=== PATIENT | female | born 1995 | race Caucasian/White ===

== ENCOUNTER 2016-09-21 09:25 | Emergency (ER) | payer OTHER ==
[2016-09-21] MEDS ORDERED: Ibuprofen TAB* 600 MG PO ONE (11:30)
--- NOTE | 2016-09-21 11:37 | ED ---
Head Injury - HPI Summary HPI Summary: 20 female presents with complaints of concussive symptoms. States she went down to pick something up and hit hear head on the corner of her car door yesterday. She felt fine yesterday however, upon waking up this morning she had an episode of feeling very nauseous light headed and has been experiencing a headache. She admits to a headache right now but denies nausea. She feels "out of it" and is experiencing photosensitivity. Denies vision changes, vision loss, bloody nose, tinnitus, vomiting, loss of memory/concentration and LOC. she remembers entire incident. Denies any other complaints/injuries and no PMHx. Admits to bruising and hematoma of right forehead. Describes headache to be diffuse but more in the frontal lobe that is throbbing, dull and constant. Has not taken any medication before arrival. - History Of Current Complaint Chief Complaint: EDHeadInjury Stated Complaint: HIT HEAD YESTERDAY/NAUSEA Hx Obtained From: Patient Hx Last Menstrual Period: aqbout 4 weeks ago on BCP Mechanism Of Injury: Direct Blow - on glass of car door Onset/Duration: Started Days Ago, Traumatic, Still Present, Worse Since Onset of Pain: Hours, Post Accident Severity Currently: None Severity Initially: Mild Pain Intensity: 3 Pain Scale Used: 0-10 Numeric Location of Head Injury: Diffuse, Frontal Character: Dull, Throbbing, Pressure, Aching Alleviating Factor(s): Rest Associated Signs And Symptoms: Nausea, Swelling, Bruising, Headache - Allergies/Home Medications Allergies/Adverse Reactions: Allergies Allergy/AdvReac Type Severity Reaction Status Date / Time No Known Allergies Allergy Verified 09/23/16 13:06 PMH/Surg Hx/FS Hx/Imm Hx Endocrine/Hematology History: Denies: Hx Anticoagulant Therapy, Hx Diabetes, Hx Thyroid Disease Cardiovascular History: Denies: Hx Hypertension Respiratory History: Denies: Hx Asthma, Hx Chronic Obstructive Pulmonary Disease (COPD) GI History: Denies: Hx Ulcer - Surgical History Surgery Procedure, Year, and Place: none - Immunization History Immunizations Up to Date: Yes Infectious Disease History: No Infectious Disease History: Denies: Hx Clostridium Difficile, Hx Hepatitis, Hx Human Immunodeficiency Virus (HIV), Hx of Known/Suspected MRSA, Hx Shingles, Hx Tuberculosis, Hx Known/ Suspected VRE, Hx Known/Suspected VRSA, History Other Infectious Disease, Traveled Outside the [place] in Last 30 Days - Family History Known Family History: Positive: Unknown - Social History Alcohol Use: Rare Substance Use Type: Reports: None Smoking Status (MU): Never Smoked Tobacco Review of Systems Constitutional: Negative Positive: Photophobia. Negative: Blurred Vision, Diplopia ENT: Negative Cardiovascular: Negative Respiratory: Negative Positive: Nausea Musculoskeletal: Negative Skin: Negative Positive: Headache. Negative: Weakness, Paresthesia, Numbness, Syncope, Slurred Speech Psychological: Normal All Other Systems Reviewed And Are Negative: Yes Physical Exam Triage Information Reviewed: Yes Vital Signs On Initial Exam: Initial Vitals Temp Pulse Resp BP Pulse Ox 97.9 F 63 17 104/63 100 09/21/16 09:42 09/21/16 09:42 09/21/16 09:42 09/21/16 09:42 09/21/16 09:42 Vital Signs Reviewed: Yes Appearance: Positive: Well-Appearing - laying on stretcher with towel covering eyes upon entry, during exam sitting up on stretcher smiling, A&Ox3 in NAD, No Pain Distress, Well-Nourished Skin: Positive: Warm, Skin Color Reflects Adequate Perfusion, Dry, Other - hematoma noted on right forehead, about size of a nickel, mild ecchymosis, no laceration. skin intact. minimal tenderness on palpation. no crepitus, step off or tender facial bones/nose. Head/Face: Positive: Normal Head/Face Inspection - besides hematoma noted above. Negative: Cephalohematoma Eyes: Positive: Normal, EOMI, AUGUST, Conjunctiva Clear ENT: Positive: Normal ENT inspection, Hearing grossly normal, Pharynx normal, TMs normal Dental: Negative: Percussion Tenderness @, Cervical Lymphadenopathy Neck: Positive: Supple, Nontender Respiratory/Lung Sounds: Positive: Clear to Auscultation, Breath Sounds Present Cardiovascular: Positive: Normal, RRR, Pulses are Symmetrical in both Upper and Lower Extremities Abdomen Description: Positive: Nontender, No Organomegaly, Soft Bowel Sounds: Positive: Present Musculoskeletal: Positive: Normal, Strength/ROM Intact Neurological: Positive: Normal - concentration and memory intactm normal neuro exam, without deficits., Sensory/Motor Intact, Alert, Oriented to Person Place, Time, CN Intact II-III, Reflexes Intact, NV Bundle Intact Distally, Normal Gait , Heel to Toe - normal, Finger to Nose - normal, Facial Symmetry, Speech Normal. Negative: [place] Psychiatric: Positive: Normal, Affect/Mood Appropriate AVPU Assessment: Alert - [place] Coma Scale Best Eye Response: 4 - Spontaneous Best Motor Response: 6 - Obeys Commands Best Verbal Response: 5 - Oriented Coma Scale Total: 15 Diagnostics - Vital Signs Vital Signs Temp Pulse Resp BP Pulse Ox 09/21/16 10:25 98.6 F 66 16 102/61 100 09/21/16 09:43 97.9 F 67 17 104/63 100 09/21/16 09:42 97.9 F 63 17 104/63 100 - Laboratory Lab Statement: Any lab studies that have been ordered have been reviewed, and results considered in the medical decision making process. Head Injury Course/Dx Course Of Treatment: ibuprofen given for headache. patient not nauseous at this time. due to normal PE findings and HPI/GUERRERO and according to CT Daviess score CT Brain did not seem appropriate at this time. Hemmorhage extremely unlikely. Patient educated on concussive symptoms and worsening signs and symptoms to watch out for. follow up, fluids, rest, and ibuprofen for headahce, zofran for nausea. second eval before returning to physical activity. - Diagnoses Differential Diagnosis/HQI/PQRI: Concussion With LOC, Concussion Without LOC, Contusion, Hematoma, Other Provider Diagnoses: Concussion without loss of consciousness Discharge - Discharge Plan Condition: Stable Disposition: HOME Patient Education Materials: Concussion (ED), Head Injury (ED) Referrals: [facility] [Primary Care Provider] - Additional Instructions: Take OTC Ibuprofen/Aleve as needed for pain and soreness. Take prescribed Zofran as needed for nausea. Drink plenty of fluids and get plenty of rest. If your symptoms worsen such as increasing pain, worst headache of your life, memory loss, vision changes, ringing in ears and vomiting please return to ED. Follow up with PCP for secondary evaluation and to ensure improvement of symptoms. Until then- refrain from running, jumping and strenuous physical activity to allow your brain to rest. Also refrain from high stimulating, high concentration activities such as watching television and using phone/computer for long periods of time. Take breaks frequently if you feel you are having trouble concentration
[2016-09-21 11:45] VITALS: BP 98/67
== END 2016-09-21 11:43 | disposition home or self-care (01) ==
LOC: ED 09:25
DX: S06.0X0A Concussion without loss of consciousness, initial encounter (principal); R11.0 Nausea; R60.9 Edema, unspecified; H53.149 Visual discomfort, unspecified; R51 Headache; W22.8XXA Striking against or struck by other objects, initial encounter; Y93.9 Activity, unspecified; Y92.9 Unspecified place or not applicable
CPT/HCPCS: 99282

== ENCOUNTER 2016-09-23 12:00 | Emergency (ER) | payer OTHER ==
[2016-09-23] MEDS ORDERED: Amoxicillin CAP* 250 MG PO ONE (13:42)
[2016-09-23 14:05] VITALS: BP 109/68
--- NOTE | 2016-09-23 16:24 | ED ---
Throat Pain/Nasal Congestion - HPI Summary HPI Summary: 20 year old female with several days of throat pain, fever with tmax to 102, body aches, fatigue. no N/v, + painful swallowing, no drooling, difficulty breathing, no sick contacts. + drinking, no appetite. - History of Current Complaint Chief Complaint: EDThroatPain Time Seen by Provider: 09/23/16 12:28 Hx Obtained From: Patient Onset/Duration: Sudden Onset Severity: Mild - Allergies/Home Medications Allergies/Adverse Reactions: Allergies Allergy/AdvReac Type Severity Reaction Status Date / Time No Known Allergies Allergy Verified 09/23/16 13:06 PMH/Surg Hx/FS Hx/Imm Hx Previously Healthy: Yes Endocrine/Hematology History: Denies: Hx Anticoagulant Therapy, Hx Diabetes, Hx Thyroid Disease Cardiovascular History: Denies: Hx Hypertension Respiratory History: Denies: Hx Asthma, Hx Chronic Obstructive Pulmonary Disease (COPD) GI History: Denies: Hx Ulcer Infectious Disease History: Denies: Hx Clostridium Difficile, Hx Hepatitis, Hx Human Immunodeficiency Virus (HIV), Hx of Known/Suspected MRSA, Hx Shingles, Hx Tuberculosis, Hx Known/ Suspected VRE, Hx Known/Suspected VRSA, History Other Infectious Disease, Traveled Outside the [place] in Last 30 Days - Social History Alcohol Use: Rare Substance Use Type: Reports: None Smoking Status (MU): Never Smoked Tobacco Review of Systems Positive: Fever, Chills, Fatigue Positive: Sore Throat, Ear Ache Cardiovascular: Negative Respiratory: Negative Gastrointestinal: Negative Genitourinary: Negative Musculoskeletal: Negative Skin: Negative Neurological: Negative Psychological: Normal All Other Systems Reviewed And Are Negative: Yes Physical Exam Triage Information Reviewed: Yes Vital Signs On Initial Exam: Initial Vitals Temp Pulse Resp BP Pulse Ox 100.5 F 94 20 105/62 100 09/23/16 12:09 09/23/16 12:09 09/23/16 12:09 09/23/16 12:09 09/23/16 12:09 Vital Signs Reviewed: Yes Appearance: Positive: No Pain Distress, Well-Nourished, Ill-Appearing - mild Skin: Positive: Warm, Skin Color Reflects Adequate Perfusion Head/Face: Positive: Normal Head/Face Inspection Eyes: Positive: EOMI, Conjunctiva Clear ENT: Positive: Hearing grossly normal, Pharyngeal erythema, TMs normal, Other - tonisilitis with white exudates, mildly enlarged. Dental: Positive: Cervical Lymphadenopathy Neck: Positive: Supple, Enlarged Nodes @ - submand, Other: - no nuchal rigidity Cardiovascular: Positive: Normal, RRR Abdomen Description: Positive: Nontender, No Organomegaly Musculoskeletal: Positive: Normal, Strength/ROM Intact Neurological: Positive: Normal, Sensory/Motor Intact, Alert, Oriented to Person Place, Time, Normal Gait Psychiatric: Positive: Normal AVPU Assessment: Alert - [place] Coma Scale Best Eye Response: 4 - Spontaneous Best Motor Response: 6 - Obeys Commands Best Verbal Response: 5 - Oriented Diagnostics - Vital Signs Vital Signs Temp Pulse Resp BP Pulse Ox 09/23/16 14:03 99.6 F 77 16 109/68 100 09/23/16 12:09 100.5 F 94 20 105/62 100 - Laboratory Lab Results: Lab Results 09/23/16 Range/Units 12:49 Group A Strep Rapid Negative (Negative) Lab Statement: Any lab studies that have been ordered have been reviewed, and results considered in the medical decision making process. EENT Course/Dx - Course Course Of Treatment: rapid strep negative, tonisillitis, ABX given, follow up with PCP increased rest and fluids - Differential Diagnoses Differential Diagnoses: Epiglottitis, Epistaxis, Periodontic Abscess, Peritonsillar Ulcer, Pharyngitis - Diagnoses Provider Diagnoses: Tonsillitis Discharge - Discharge Plan Condition: Improved Disposition: HOME Prescriptions: Amoxicillin CAP* [Amoxicillin 500 MG CAP*] 500 mg PO Q12H #20 cap Patient Education Materials: Tonsillitis (ED) [facility]errals[facility] [Primary Care Provider] - 1 Week Additional Instructions: - Increase fluids - Increase rest - Antibiotics as prescribed - REturn to ER with increased swelling, decreased swallowing - MOrtin 600mg every 6 hours as needed for pain
== END 2016-09-23 14:11 | disposition home or self-care (01) ==
LOC: ED 12:00
DX: J03.90 Acute tonsillitis, unspecified (principal)
CPT/HCPCS: 87651; 99282; A9270-GY

== ENCOUNTER 2017-09-27 21:52 | Emergency (ER) | payer OTHER ==
--- NOTE | 2017-09-27 23:30 | ED ---
Laceration/Wound HPI - HPI Summary HPI Summary: 21 female presents the ED with complaints of a laceration to right thumb that she sustained just prior to arrival while trying to open up food can. States bleeding is well controlled and wound is well approximated. It is unknown of last tetanus. No other complaints. No past medical history. No other injuries. Has full range of motion of thumb. No numbness or tingling. - History of Current Complaint Stated Complaint: RT THUMB LAC Time Seen by Provider: 09/27/17 23:15 Hx Obtained From: Patient Hx Last Menstrual Period: aqbout 4 weeks ago on BCP Mechanism of Injury: Sharp/Blunt Trauma Onset/Duration: Sudden Onset, Lasting Hours Aggravating: Movement Alleviating: Compression Timing: Constant Onset Severity: Mild Current Severity: Mild Pain Intensity: 2 Pain Scale Used: 0-10 Numeric Related Hx: Dominant Hand (Right) - Allergy/Home Medications Allergies/Adverse Reactions: Allergies Allergy/AdvReac Type Severity Reaction Status Date / Time No Known Allergies Allergy Verified 09/23/16 13:06 PMH/Surg Hx/FS Hx/Imm Hx Endocrine/Hematology History: Denies: Hx Anticoagulant Therapy, Hx Diabetes, Hx Thyroid Disease Cardiovascular History: Denies: Hx Hypertension Respiratory History: Denies: Hx Asthma, Hx Chronic Obstructive Pulmonary Disease (COPD) GI History: Denies: Hx Ulcer - Surgical History Surgery Procedure, Year, and Place: none - Immunization History Date of Tetanus Vaccine: unknown therefore updated today for 09/27/2017 Immunizations Up to Date: Yes Infectious Disease History: No Infectious Disease History: Denies: Hx Clostridium Difficile, Hx Hepatitis, Hx Human Immunodeficiency Virus (HIV), Hx of Known/Suspected MRSA, Hx Shingles, Hx Tuberculosis, Hx Known/ Suspected VRE, Hx Known/Suspected VRSA, History Other Infectious Disease, Traveled Outside the [place] in Last 30 Days - Family History Known Family History: Positive: None - Social History Alcohol Use: Rare Substance Use Type: Reports: None Smoking Status (MU): Never Smoked Tobacco Review of Systems Constitutional: Negative Cardiovascular: Negative Respiratory: Negative Musculoskeletal: Negative Positive: Other - laceration to right thumb Neurological: Negative All Other Systems Reviewed And Are Negative: Yes Physical Exam Triage Information Reviewed: Yes Vital Signs On Initial Exam: Initial Vitals Temp Pulse Resp BP Pulse Ox 97.4 F 67 16 105/70 100 09/27/17 22:08 09/27/17 22:08 09/27/17 22:08 09/27/17 22:08 09/27/17 22:08 Vital Signs Reviewed: Yes Appearance: Positive: Well-Appearing, No Pain Distress, Well-Nourished Skin: Positive: Warm, Skin Color Reflects Adequate Perfusion, Dry, Other - 2 cm linear laceration on fingerpad of right thumb no nail involvement well approximated superficial without foreign body no active bleeding or complication. Negative: Cold, Numb, Cyanosis @, Pale, Erythema @ Head/Face: Positive: Normal Head/Face Inspection Eyes: Positive: Conjunctiva Clear ENT: Positive: Hearing grossly normal Neck: Positive: Supple Respiratory/Lung Sounds: Positive: Clear to Auscultation, Breath Sounds Present. Negative: Rales, Rhonchi, Wheezes Cardiovascular: Positive: Normal, RRR, Pulses are Symmetrical in both Upper and Lower Extremities. Negative: Murmur, Rub Musculoskeletal: Positive: Normal, Strength/ROM Intact. Negative: Limited @, Interruption @, Abnormal @, Pain @, Edema Left, Edema Right Neurological: Positive: Normal, Sensory/Motor Intact, Alert, Oriented to Person Place, Time, NV Bundle Intact Distally, Normal Gait Procedures - Laceration/Wound Repair 1 Location: upper extremity - right thumb Description: Linear Length, Depth and Shape: 2 cm superficial epidermal layer over right finger pad thumb Betadine Prep?: No Irrigated w/ Saline (ccs): 100 Laceration/Wound Explored: clean, no foreign body removed Closure: Skin Adhesive Sterile Dressing Applied?: Yes - Telfa Curlex and Coban Diagnostics - Vital Signs Vital Signs Temp Pulse Resp BP Pulse Ox 09/27/17 22:08 97.4 F 67 16 105/70 100 - Laboratory Lab Statement: Any lab studies that have been ordered have been reviewed, and results considered in the medical decision making process. Laceration Repair Course/Dx - Course Course Of Treatment: Laceration was irrigated thoroughly. Was closed using skin adhesive. Was very superficial and well approximated. Patient tolerated procedure well. Tetanus was updated today. No other complications or concerns. Full range of motion and normal sensation. Keep clean and dry. Dressing was applied. Follow-up with PCP. Ibuprofen for any discomfort. All questions were answered. Aware worsening signs and symptoms watch out for. - Differential Dx Differental Diagnoses: Abrasion, Avulsion, Laceration - Clinical Impression Provider Diagnoses: Laceration of finger Discharge - Sign-Out/Discharge Documenting (check all that apply): Discharge - Discharge Plan Condition: Good Disposition: HOME Patient Education Materials: Laceration (ED), Skin Adhesive Care (ED) Referrals: Azul Rausch NP [Primary Care Provider] - Additional Instructions: Keep clean and dry for the next 24 hours. Do not pick at glue, let it fall off on its own. Any new or worsening symptoms please seek medical attention promptly - Billing Disposition and Condition Condition: GOOD Disposition: HOME
[2017-09-28] MEDS ORDERED: Tetan/Diph/Pertus SYR(Tdap)* 0.5 ML SYR(BOOSTRIX) use SYR IM ONE (00:22)
[2017-09-28 04:11] VITALS: BP 127/69
== END 2017-09-28 00:35 | disposition home or self-care (01) ==
LOC: ED 21:52
DX: S61.011A Laceration without foreign body of right thumb without damage to nail, initial encounter (principal); W26.8XXA Contact with other sharp object(s), not elsewhere classified, initial encounter; Y92.9 Unspecified place or not applicable
CPT/HCPCS: 12001; 90471; 90715; 99281